=== PATIENT | female | born 1975 ===

== ENCOUNTER 2024-05-04 19:19 | Emergency (ER) | payer SELFPAY ==
[2024-05-04 19:23] VITALS: BP 128/102; PULSE 114; RESP 16; TEMP 36.4; O2SAT 100
--- NOTE | 2024-05-04 19:30 | PC.NURSE ---
rn x 2 attempted to draw labs and start iv. Pt unable to sit still, and or tolerate the tourniquet on her arm(s).
--- NOTE | 2024-05-04 20:50 | PC.NURSE ---
Patient seen ambulating out of the waiting room in no apparent distress with family member.
== END 2024-05-04 21:14 | disposition left against medical advice (07) ==
DX: R11.2 Nausea with vomiting, unspecified (principal)
CPT/HCPCS: 99199